=== PATIENT | male | born 2000 | race Caucasian/White ===

== ENCOUNTER 2018-02-23 14:36 | Emergency (ER) | payer BC ==
[2018-02-23 14:46] VITALS: BP 131/75
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
== END 2018-02-23 15:24 | disposition home or self-care (01) ==
DX: S09.90XA Unspecified injury of head, initial encounter (principal); R51 Headache; W22.09XA Striking against other stationary object, initial encounter; Y93.61 Activity, american tackle football

== ENCOUNTER 2018-02-25 18:32 | Emergency (ER) | payer BC ==
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
[2018-02-25] MEDS ORDERED: ACETAMINOPHEN 500 MG TAB PO ONE (20:46)
[2018-02-25 20:55] VITALS: BP 121/74
== END 2018-02-25 20:54 | disposition home or self-care (01) ==
DX: S06.0X0A Concussion without loss of consciousness, initial encounter (principal); S16.1XXA Strain of muscle, fascia and tendon at neck level, initial encounter

== ENCOUNTER 2018-05-16 21:15 | Observation (INO) | payer BC ==
[2018-05-16] MEDS ORDERED: ONDANSETRON 4 MG/2 ML VIAL IVP ONE (22:06)
[2018-05-16] MEDS ORDERED: NS 1,000 ML IV ONE (22:06)
[2018-05-16] MEDS ORDERED: fentaNYL 100 MCG/2 ML INJ IVP ONE (22:06)
--- NOTE | 2018-05-16 22:07 | EDPHY ---
H & P Stated Complaint: GROIN AREA PAIN POSS HERNIA WT PRODUCT DEVELOPMENT Time Seen by Provider: 05/16/18 21:57 HPI/ROS: Chief Complaint: Abdominal and groin pain HPI: 17-year-old male is having worsening pain in his right abdomen and groin for the last several days. This occurred after he had been lifting over the weekend. Pain started 2 days ago. Been getting progressively worse. Worse when he moves around. Some nausea but no vomiting. No scrotal swelling or erythema. No urinary urgency or frequency. No discharge. No history of sexually transmitted infection in the past. He is sexually active with a single partner. ROS: 10 systems were reviewed and were negative except those elements noted in the HPI. PMH: Denies Social History: No smoking, occasional alcohol, no recreational drug use Family History: non-contributory Physical Exam: Gen: Awake, Alert, No Distress HEENT: Nose: no rhinorrhea Eyes: PERRLA, EOMI Mouth: Moist mucosa Neck: Supple, no JVD Chest: nontender, lungs clear to auscultation Heart: S1, S2 normal, no murmur Abd: Soft, tender right lower quadrant with voluntary guarding Genital: Normal circumcised penis, no scrotal erythema or edema, no tenderness , normal lie, normal cremasteric, no hernias Back: no CVA tenderness, no midline tenderness Ext: no edema, non-tender Skin: no rash Neuro: CN II-XII intact, Sensation grossly intact, Strength 5/5 in bilateral upper and lower extremities - Personal History Current Tetanus/Diphtheria Vaccine: Yes Current Tetanus Diphtheria and Acellular Pertussis (TDAP): Yes - Medical/Surgical History Hx Asthma: No Hx Chronic Respiratory Disease: No Hx Diabetes: No Hx Cardiac Disease: No Hx Renal Disease: No Hx Cirrhosis: No Hx Alcoholism: No Hx HIV/AIDS: No Hx Splenectomy or Spleen Trauma: No Other PMH: seizures, CONCUSSION - Social History Smoking Status: Never smoked Constitutional: Initial Vital Signs Temperature (C) 37.0 C 05/16/18 21:19 Heart Rate 87 05/16/18 21:19 Respiratory Rate 18 05/16/18 21:19 Blood Pressure 155/96 H 05/16/18 21:19 O2 Sat (%) 94 05/16/18 21:19 O2 Delivery Mode Room Air Allergies/Adverse Reactions: shellfish derived Allergy (Verified 05/16/18 21:20) Home Medications: Medication Instructions Recorded NK [No Known Home Meds] 02/23/18 Medical Decision Making - Diagnostics Imaging Results: Imaging Impressions Abdomen Ultrasound 05/16/18 22:05 Impression: Suspect mild appendicitis involving the tip of the appendix. Findings discussed with Emergency Department physician, Beau Brooks MD at 05/16/2018 23:03. Imaging: Discussed imaging studies w/ figure refinisher and repairer Radiologist ED Course/Re-evaluation: Ultrasound consistent with early appendicitis. Will discussed with General surgery. Patient last ate at 7:00 a.m. This evening. - Data Points Laboratory Results: Laboratory Results 05/16/18 22:15 05/16/18 22:15 05/16/18 05/16/18 05/16/18 22:24 22:15 22:15 WBC 10.16 10^3/uL H 10^3/uL (3.80-9.50) RBC 5.44 10^6/uL 10^6/uL (4.40-6.38) Hgb 15.9 g/dL g/dL (13.7-17.5) Hct 45.2 % % (40.0-51.0) MCV 83.1 fL fL (81.5-99.8) MCH 29.2 pg pg (27.9-34.1) MCHC 35.2 g/dL g/dL (32.4-36.7) RDW 11.9 % % (11.5-15.2) Plt Count 204 10^3/uL 10^3/uL (150-400) MPV 10.2 fL fL (8.7-11.7) Neut % (Auto) 52.9 % % (39.3-74.2) Lymph % (Auto) 36.1 % % (15.0-45.0) [place] % (Auto) 8.6 % % (4.5-13.0) Eos % (Auto) 1.6 % % (0.6-7.6) Baso % (Auto) 0.4 % % (0.3-1.7) Nucleat RBC Rel Count 0.0 % % (0.0-0.2) Absolute Neuts (auto) 5.38 10^3/uL 10^3/uL (1.70-6.50) Absolute Lymphs (auto) 3.67 10^3/uL H 10^3/uL (1.00-3.00) Absolute Monos (auto) 0.87 10^3/uL H 10^3/uL (0.30-0.80) Absolute Eos (auto) 0.16 10^3/uL 10^3/uL (0.03-0.40) Absolute Basos (auto) 0.04 10^3/uL 10^3/uL (0.02-0.10) Absolute Nucleated RBC 0.00 10^3/uL 10^3/uL (0-0.01) Immature Gran % 0.4 % % (0.0-1.1) Immature Gran # 0.04 10^3/uL 10^3/uL (0.00-0.10) Sodium 138 mEq/L mEq/L (135-145) Potassium 3.9 mEq/L mEq/L (3.5-5.2) Chloride 103 mEq/L mEq/L (97-110) Carbon Dioxide 22 mEq/l mEq/l (22-31) Anion Gap 13 mEq/L mEq/L (6-14) BUN 21 mg/dL mg/dL (7-23) Creatinine 1.3 mg/dL mg/dL (0.7-1.3) Estimated GFR > 60 Glucose 103 mg/dL H mg/dL (70-100) Calcium 9.9 mg/dL mg/dL (8.5-10.4) Urine Color PALE YELLOW Urine Appearance CLEAR Urine pH 5.0 (5.0-7.5) Ur Specific [place] 1.015 (1.002-1.030) Urine Protein NEGATIVE (NEGATIVE) Urine Ketones NEGATIVE (NEGATIVE) Urine Blood NEGATIVE (NEGATIVE) Urine Nitrate NEGATIVE (NEGATIVE) Urine Bilirubin NEGATIVE (NEGATIVE) Urine Urobilinogen NEGATIVE EU EU (0.2-1.0) Ur Leukocyte Esterase NEGATIVE (NEGATIVE) Urine Glucose NEGATIVE (NEGATIVE) Medications Given: Discontinued Medications Fentanyl (Sublimaze) 50 mcg IVP EDNOW ONE Stop: 05/16/18 22:07 Last Admin: 05/16/18 22:24 Dose: 50 mcg Sodium Chloride (Ns) 1,000 mls @ 0 mls/hr IV ONCE ONE; Wide Open PRN Reason: Protocol Stop: 05/16/18 22:07 Last Admin: 05/16/18 22:25 Dose: 1,000 mls Ondansetron HCl (Zofran) 4 mg IVP EDNOW ONE Stop: 05/16/18 22:07 Last Admin: 05/16/18 22:24 Dose: 4 mg Departure - Departure Disposition: [facility] Inpatient Acute Clinical Impression: Acute appendicitis Condition: Fair Referrals: NONE *PRIMARY CARE P,. [Primary Care Provider] - As per Instructions
[2018-05-16 22:37] LABS: PLATELET COUNT 204 10^3/uL (150-400)
[2018-05-16] MEDS ORDERED: BUPIVACAINE 0.5% 30 ML SDV ONE (23:37)
[2018-05-17] MEDS ORDERED: MIDAZOLAM 2 MG/2 ML VIAL ONE (00:02)
[2018-05-17] MEDS ORDERED: PROPOFOL/EMULSION 500 MG/50 ML BOTTLE IV ONE (00:03)
[2018-05-17] MEDS ORDERED: fentaNYL 100 MCG/2 ML INJ ONE ×2 (00:03→01:22)
[2018-05-17] MEDS ORDERED: ACETAMINOPHEN 325 MG TAB PO PRN (00:05)
[2018-05-17] MEDS ORDERED: KETOROLAC 15 MG/1 ML SDV IVP PRN (00:05)
[2018-05-17] MEDS ORDERED: PROMETHAZINE HCL 25 MG/ML INJ IVP PRN ×2 (00:06→00:29)
[2018-05-17] MEDS ORDERED: ONDANSETRON 4 MG/2 ML VIAL IVP PRN ×2 (00:06→00:29)
[2018-05-17] MEDS ORDERED: fentaNYL 100 MCG/2 ML INJ IVP PRN (00:10)
[2018-05-17] MEDS ORDERED: ALBUTEROL 3 ML DEYVIAL IH PRN (00:10)
[2018-05-17] MEDS ORDERED: NALOXONE HCL 0.4 MG/ML INJ IVP PRN (00:10)
--- NOTE | 2018-05-17 00:10 | PDANEPAE ---
ANE Past Medical History - Pulmonary History Hx Oxygen in Use at Home: No - Endocrine History Hx Diabetes: No ANE Review of Systems Review of Systems: ANE Patient History - Allergies Allergies/Adverse Reactions: shellfish derived Allergy (Verified 05/16/18 21:20) - Home Medications Home Medications: NK [No Known Home Meds] 02/23/18 [Last Taken Unknown] - NPO status NPO Since - Liquids (Date): 05/16/18 NPO Since - Liquids (Time): 20:00 NPO Since - Solids (Date): 05/16/18 NPO Since - Solids (Time): 19:00 - Smoking Hx Smoking Status: Never smoked ANE Labs/Vital Signs - Labs Result Diagrams: 05/16/18 22:15 05/16/18 22:15 - Vital Signs Blood Pressure: 157/77 Heart Rate: 83 Respiratory Rate: 18 O2 Sat (%): 96 Height: 177.8 cm Weight: 79.379 kg ANE Physical Exam - Airway Neck exam: FROM Mallampati Score: Class 1 Mouth exam: normal dental/mouth exam - Pulmonary Pulmonary: no respiratory distress, no rales or rhonchi, clear to auscultation - Cardiovascular Cardiovascular: no murmur, rub, or gallop - ASA Status ASA Status: I, E ANE Anesthesia Plan Anesthesia Plan: general endotracheal anesthesia
[2018-05-17] MEDS ORDERED: NS 1,000 ML IV SCH (00:15)
[2018-05-17] MEDS ORDERED: METOCLOPRAMIDE 10 MG/2 ML VIAL IVP PRN (00:29)
[2018-05-17] MEDS ORDERED: DIAZEPAM 5 MG/ML 1 ML SYR IVP PRN (00:29)
[2018-05-17] MEDS ORDERED: LR 500 ML IV PRN (00:29)
[2018-05-17] MEDS ORDERED: SUGAMMADEX SODIUM 200 MG/2 ML VIAL IVP ONE (00:48)
[2018-05-17] MEDS ORDERED: ONDANSETRON 4 MG/2 ML VIAL ONE (00:48)
[2018-05-17] MEDS ORDERED: METOCLOPRAMIDE 10 MG/2 ML VIAL ONE (00:48)
[2018-05-17] MEDS ORDERED: LIDOCAINE 2% 5 ML SDV ONE (00:48)
[2018-05-17] MEDS ORDERED: ROCURONIUM 50 MG/5 ML VIAL ONE (00:48)
[2018-05-17] MEDS ORDERED: KETOROLAC 30 MG/1 ML SDV ONE (00:48)
[2018-05-17] MEDS ORDERED: PROPOFOL 200 MG/20 ML VIAL ONE (00:48)
--- NOTE | 2018-05-17 01:01 | POSTOPPROG ---
Post Op Note Date of Operation: 05/17/18 Surgeon: Debbie Parry Anesthesiologist: tavia Anesthesia: GET(General Endotracheal) Pre-op Diagnosis: acute appendicitis Post-op Diagnosis: same Indication: 17 yo with acute appendicitis Procedure: lap appy Findings: inflamed appendix Inf/Abcess present in the surg proc area at time of surgery?: No EBL: Minimal Specimen(s): appendix
--- NOTE | 2018-05-17 02:10 | GHP ---
DATE OF ADMISSION: 05/16/2018 CHIEF COMPLAINT: Acute appendicitis. HISTORY OF PRESENT ILLNESS: The patient is a 17-year-old man who had right lower quadrant abdominal pain radiating to the testicle starting on Sunday. Today, it was localizing to the right lower quad rant, was not improving. It was getting worse with walking. He had nausea. No vomiting. No change s in urinary habits. He had an ultrasound performed in the ER, which showed mild appendicitis and a white count of 10,000. PAST MEDICAL HISTORY: None. PAST SURGICAL HISTORY: None. SOCIAL HISTORY: No recreational drug use or tobacco use. He is majoring in [employer]. FAMILY HISTORY: Noncontributory. REVIEW OF SYSTEMS: No headaches, fevers, chills, changes in vision, hearing, sore throat, chest pain , shortness of breath, palpitations, vomiting, constipation, diarrhea, dysuria, hematuria, joint pain , joint swelling, changes in mood. He does have nausea. PHYSICAL EXAMINATION: VITAL SIGNS: 37.2, 76, 153/65, 18, 97% room air. GENERAL: Pleasant, well-no urished, well-groomed man lying on bed. HEENT: Normocephalic. No gross hearing deficits. Mucous m embranes moist. Pupils equal and round. No scleral icterus. LUNGS: Clear to auscultation bilatera lly. No increased work of breathing. CARDIAC: Regular rate. No peripheral edema. ABDOMEN: Bowel sounds present. He is soft. He is tender in the right lower quadrant. Negative Rovsing sign. SKI N: Warm and dry. No rashes. PSYCH: Mood and affect normal. NEURO: Grossly intact. RESULTS REVIEWED: I personally reviewed the ultrasound, and the tip of the appendix is slightly infl harsha. IMPRESSION AND PLAN: The patient is a 17-year-old with acute appendicitis. I will take him to the perating room for laparoscopic appendectomy. Risks and benefits, including, but not limited to, stro ke, heart attack, , blood clots, infection, bleeding, damage to surrounding structures were disc ussed. He had his questions answered to his satisfaction, signed the informed consent. /[id number]/MODL
[2018-05-17] MEDS: HYDROCODONE/APAP 5/325 TAB PO PRN ×3 (05:32→15:22)
--- NOTE | 2018-05-17 05:56 | GOP ---
DATE OF OPERATION: 05/17/2018 SURGEON: Debbie Parry MD ANESTHESIA: General. ANESTHESIOLOGIST: Dayanara Urias MD. PREOPERATIVE DIAGNOSIS: Acute appendicitis. POSTOPERATIVE DIAGNOSIS: Acute appendicitis. PROCEDURE PERFORMED: Laparoscopic appendectomy. FINDINGS: Long appendix inflamed at the tip. SPECIMENS: Appendix. ESTIMATED BLOOD LOSS: Minimal. INDICATIONS: The patient is a 17-year-old with acute appendicitis. DESCRIPTION OF PROCEDURE: Patient was brought into the operating room, placed supine on the table, a nd general anesthesia was administered. His abdomen was prepped and draped in the usual sterile fash ion. I infiltrated all sites with 0.5% Marcaine prior to making incisions. I made an incision at th e umbilicus. I passed the Veress needle and it passed the hanging drop test. I connected to insuffl ation but it immediately went to 15. I then removed the insufflation and repassed the Veress needle. It passed the hanging drop test and this time the pressure started low and then insufflated easily to a pressure of 15 mmHg. I placed a 5 mm trocar with a camera at this site. No injuries from Veres s needle placement. Under direct vision, I placed a 5 mm suprapubic trocar and a 10 mm trocar in the left lower quadrant. I grasped his appendix. I divided the mesoappendix with the Harmonic Scalpel. I divided the base of the appendix with an Endo-ONEL white load. There was initially bleeding from the medial edge of the staple line, but that stopped with direct pressure. I explored his abdomen. No other abnormalities noted. No injuries. I removed the trocars under direct vision and allowed th e abdomen to desufflate. I closed the fascia with 0 Vicryl, closed skin with 4-0 Monocryl, Dermabond applied. He was awakened in the operating room, extubated and transferred to PACU in stable conditi on. /[id number]/MODL
[2018-05-17] MEDS ORDERED: IBUPROFEN 600 MG TAB PO PRN (09:48)
--- NOTE | 2018-05-17 11:08 | SOAPPROG ---
SOAP Progress Note Assessment/Plan: Assessment/Plan: 17yo M POD#0 s/p lap appy for acute appendicitis Pain improved No nausea Regular diet - has not tried eating yet Passing flatus Dispo: likely home later today if pain controlled and tolerating diet S: pain improved compared to admission. No nausea. Has not tried eating yet. Has not walked outside room O: laying in bed, comfortable, NAD No increased WOB +BS, soft, slightly distended. Tender RLQ Incisions CDI Objective: Vital Signs Temp Pulse Resp BP Pulse Ox 36.4 C 56 L 16 108/57 L 95 05/17/18 07:30 05/17/18 07:30 05/17/18 07:30 05/17/18 07:30 05/17/18 07:30 05/16/18 05/17/18 05/18/18 05:59 05:59 05:59 Intake Total 1787 Output Total 900 Balance 887 ICD10 Worksheet Patient Problems: Problems Problem Status Onset Acute appendicitis Acute
--- NOTE | 2018-05-17 11:25 | POSTANESTH ---
Post Anesthetic Evaluation Cardiovascular Status: Normal, Stable, Similar to Pre-Op Cond Respiratory Status: Normal, Stable, Similar to Pre-op Cond. Level of Consciousness/Mental Status: Moderately Sleepy Pain Control: Adequate, Prn Tx Ordered Nausea/Vomiting Control: Adequate, Prn Tx Ordered Complications Possibly Related to Anesthesia: None Noted
[2018-05-17 13:43] VITALS: BP 111/60
--- NOTE | 2018-05-17 15:55 | GDS ---
PRIMARY DIAGNOSIS: Acute appendicitis. SECONDARY DIAGNOSIS: None. REASON FOR ADMISSION: 17-year-old man who presented to the emergency room complaining of right lower quadrant pain. Ultrasound performed in the ER showed appendicitis. He had a white count of 10,000. He was admitted for surgical intervention, pain control, and observation. HOSPITAL COURSE: He was taken to the operating room by Dr. Debbie Parry on 05/17/2018 for laparoscopi c appendectomy, inflamed appendix found at the time of surgery. On postoperative day #0, he was tole rating a regular diet, ambulating independently, and his pain was well controlled with oral pain medi cation. He was ready for discharge. DISCHARGE CONDITION: Discharged home in stable condition. Pain well controlled, tolerating a regula r diet, ambulating independently. DISCHARGE MEDICATIONS: Sent home with a prescription for Moran. Instructed to take Tylenol, ibuprof en over the counter. See EMR for further detail. DISCHARGE INSTRUCTIONS AND FOLLOWUP: Avoid heavy lifting, pushing or pulling x2 weeks. May shower t omorrow. Avoid hot tubs, swimming pools, tub baths x2 weeks. Follow up in 2 weeks for a postop [facility]. Call with worsening symptoms, questions or concerns. /[id number]/MODL
[2018-05-18] MEDS ORDERED: ENOXAPARIN 40 MG/0.4 ML SYR SC SCH (09:00)
== END 2018-05-17 16:40 | disposition home or self-care (01) ==
LOC: FOB 05-17 02:10
PROVIDERS: ADMIT Surgery; ATTEND Surgery
PROC: 0DTJ4ZZ Resection of Appendix, Percutaneous Endoscopic Approach (ICD-10-PCS; principal; 2018-05-16)
DX: K35.80 Unspecified acute appendicitis (principal); E86.0 Dehydration
CPT/HCPCS: 44970; 76705; G0378; 96365; J0696; J1885; J2250; J2270; J2405; J2704; J2765; J3010